=== PATIENT | male | born 2000 | race Asian ===

== ENCOUNTER 2025-03-30 13:54 | Emergency (ER) | payer BC ==
[~2025-03-30] VITALS: Ht 180.3 cm; Wt 82.1 kg
[2025-03-30 13:58] VITALS: TEMP 97.7
[2025-03-30 14:28] LABS: MEAN PLATELET VOLUME 9.0 FL (7.4-10.4); RED CELL DISTRIBUTION WIDTH 13.3 % (11.5-14.5)
[2025-03-30 14:57] LABS: CREATININE 0.91 MG/DL (0.60-1.10); TOTAL CARBON DIOXIDE 29.8 MMOL/L (24-32); eCRCL 133 ML/MIN; eGFR > 90 ML/MIN
[2025-03-30 16:42] LABS: LEUKOCYTE ESTERASE ,URINE NEGATIVE (Neg); NITRITES, URINE NEGATIVE (Neg); OCCULT BLOOD,URINE NEGATIVE (Neg)
[2025-03-30 16:47] LABS: UA COLLECTION TYPE CLN CATCH MIDSTREAM
--- NOTE | 2025-03-30 16:52 | Physician Documentation ---
History of Present Illness ~ Chief Complaint: Flank Pain Stated Complaint: KIDNEY PAIN Time Seen by MD: 16:14 Source: patient HPI Patient is seen today with complaints of right-sided flank pain. Patient does admit to history of kidney stones and states this pain does seem and feel similar but states it is much less intense. Patient states this is definitely not a musculoskeletal or muscle strain. Patient denies any fever or chills or abdominal pain or chest pain or shortness of breath or nausea, vomiting, diarrhea. Patient has no other concern or complaint at this time. Patient states his pain has actually been going on for close to a month. Medication Reconciliation Allergies: Coded Allergies: No Known Allergies (Unverified , 03/30/25) Review of Systems Constitutional: Denies: chills, fever, weakness Eyes: Denies: pain, blurred vision ENT: Denies: ear pain, nose pain, throat pain, mouth pain Respiratory: Denies: cough, shortness of breath Cardiovascular: Denies: chest pain, palpitations Gastrointestinal: Denies: abdominal pain, nausea, vomiting Genitourinary: Denies: burning, dysuria Male Genitalia: Denies: penile discharge, testicular pain Neurological: Denies: headache, dizziness Musculoskeletal: Denies: pain, swelling Integumentary: Denies: rash, lesions Allergic/Immunologic: Denies: hives, itching Hematologic/Lymphatic: Denies: no symptoms reported Psychiatric: Denies: depression, anxiety Physical Exam Vital Signs: Temperature: 97.7, Source: Temporal, Heart Rate: 91, Respiratory Rate: 18, BP: 118/81, Pulse Oximetry: 99, Weight: 82.100 Oxygen Flow Rate: 0 Physical Exam General: Awake and Alert, no acute distress. HEENT: Conjunctiva pink, Sclera clear, Mucus Membranes moist. Neck: Supple without masses and tenderness. Resp: Unlabored. Lungs clear to auscultation bilaterally. Heart: Regular Rate and rhythm, normal S1 and S2 without murmur, rub or gallop. Abdomen: Soft and non tender no organomegaly. Patient has no CVA tenderness. Extremities: No cyanosis,clubbing or edema. Skin: Warm and Dry. Progress Results/Orders Results/Orders Orders - GINO YOUNG PAC Ct Abdomen Pelvis (03/30/25 16:30) Completed Orders - GINO YOUNG PAC Ct Abdomen Pelvis (03/30/25 16:30) Vital Signs 03/30/25 03/30/25 13:58 16:00 Temp 97.7 Pulse 91 85 Resp 18 16 B/P (MAP) 118/81 107/71 (83) Pulse Ox 99 100 O2 Flow Rate 0 0 Laboratory Tests Test 03/30/25 14:18 03/30/25 16:14 White Blood Count 7.3 Red Blood Count 5.09 Hemoglobin 13.5 L Hematocrit 40.7 L Mean Corpuscular Volume 80.0 Mean Corpuscular Hemoglobin 26.5 L Mean Corpuscular Hemoglobin Concent 33.1 Red Cell Distribution Width 13.3 Platelet Count 290 Mean Platelet Volume 9.0 Neutrophils (%) (Auto) 53.2 Lymphocytes (%) (Auto) 31.4 Monocytes (%) (Auto) 7.9 Eosinophils (%) (Auto) 6.7 H Basophils (%) (Auto) 0.8 Neutrophils # (Auto) 3.9 Lymphocytes # (Auto) 2.3 Monocytes # (Auto) 0.6 Eosinophils # (Auto) 0.5 Basophils # (Auto) 0.1 CBC Comment Sodium Level 140 Potassium Level 4.1 Chloride Level 102 Carbon Dioxide Level 29.8 Anion Gap 8 Blood Urea Nitrogen 11 Creatinine 0.91 Estimated GFR/1.73 m2 > 90 BUN/Creatinine Ratio 12.1 Glucose Level 109 H Calcium Level 9.0 Total Bilirubin 0.4 Aspartate Amino Transf (AST/SGOT) 20 Alanine Aminotransferase (ALT/SGPT) 56 Alkaline Phosphatase 93 Total Protein 8.2 Albumin 4.3 Globulin 3.9 Albumin/Globulin Ratio 1.1 Lipase 22 Chemistry Comments Urine Specimen Description Cln catch midstream Urine Color Straw Urine Clarity Clear Urine pH 6.5 Urine Specific [place] <=1.005 Urine Protein Negative Urine Glucose (UA) Negative Urine Ketones Negative Urine Occult Blood Negative Urine Nitrite Negative Urine Bilirubin Negative Urine Urobilinogen 0.2 Urine Leukocyte Esterase Negative Urine Culture Indicated Not ind Volume Urine Centrifuged 10 ml Urine Comment EKG/XRAY/CT/US/VASC/MRI CT : Impression CAT SCAN Patient: TOÑO SANTIAGO Medical Record: [id number] [facility] : 2000, Age: 24 Sex: Male Location: ER Patient Status: [facility] ER Service Date/Time: 03/30/25/ 1630 Ordering Physician: GINO YOUNG PAC Exam: CT ABDOMEN PELVIS EXAM: CT CT ABDOMEN PELVIS History: right flank pain kidney stone rule out. Comparison Study: None TECHNIQUE: Multidetector CT of the abdomen and pelvis without IV contrast. Axial, coronal and sagittal multiplanar reformats were obtained from the axial data set by the technologist. Radiation Dose Information: CT Dose: CTDI volume is 15.04 mGy. Dose-length product is 792.49 mGy*cm FINDINGS: The lung bases are clear. Partially visualized heart is unremarkable. Hepatomegaly with hepatic steatosis. Spleen, gallbladder, pancreas and adrenal glands are unremarkable. Punctate nonobstructing right renal calculi. Mild bilateral renal pelviectasis. Otherwise, kidneys, ureters and urinary bladder unremarkable. Prostate is unremarkable. Stomach is [id number] distended. Small bowel loops are unremarkable. Appendix is unremarkable. Small to moderate amount of fecal material within the colon. No evidence of intraperitoneal free air or free fluid. No evidence of aortic aneurysm . No significant lymphadenopathy. Soft tissues are unremarkable. No evidence of acute osseous abnormalities. IMPRESSION: No evidence of Acute abdominopelvic abnormalities. Punctate nonobstructing right renal calculi. Mild bilateral renal pelviectasis. Hepatomegaly with Hepatic steatosis. Electronically Signed by:BREANNE BRADSHAW DO Date & Time: 03/30/251734 Dictated by: BREANNE BRADSHAW DO Dictation date and time: 03/30/251734 Primary Care Provider: NO PRIMARY CARE PROVIDER cc: GINO YOUNG PAC ~ Medical Decision Making Additional information obtaine: N/A Findings Patient is seen today with complaints of right-sided flank pain. Patient does admit to history of kidney stones and states this pain does seem and feel similar but states it is much less intense. Patient states this is definitely n ot a musculoskeletal or muscle strain. Patient denies any fever or chills or abdominal pain or chest pain or shortness of breath or nausea, vomiting, diarrhea. Patient has no other concern or complaint at this time. Patient Did have CT scan of abdomen and pelvis that did show punctate kidney stones in the right kidney smaller than one or 2 mm. Patient will continue to monitor symptoms closely. Patient will take Tylenol and ibuprofen as needed for symptomatic relief patient will follow up with primary care for referral to urologist as needed. Urinary Diff Dx:Considerations: Include: Urolithiasis, Urinary retention, UTI Genital Diff Dx:Considerations: Unlikely: Abscess, Balanitis, Balanoposthitis, Cellulitis, Epididymitis, Entrapment injury, Shahnaz's gangrene, Foreign body, Facture penis, Hydrocele, Inguinal hernia, Post-op Complication, Paraphimosis, Prostatitis, Priapism, Syphilis, Testicular torsion, Torsion-epididymis, Torsion-appendiceal, Urinary retention, Urethritis, Urethritis-chlamydial, Urethritis-gonococcal, UTI, Other Departure Disposition: HOME / SELF CARE / HOMELESS Impression: Primary Impression: Calculus of kidney Condition: Stable Discharge Instructions: Kidney Stones Additional Instructions: Patient Did have CT scan of abdomen and pelvis that did show punctate kidney stones in the right kidney smaller than one or 2 mm. Patient will continue to monitor symptoms closely. Patient will take Tylenol and ibuprofen as needed for symptomatic relief patient will follow up with primary care for referral to urologist as needed. Referrals: NO PRIMARY CARE PROVIDER (PCP) Signature Scribe Signature: No scribe Attestation: No scribe GINO YOUNG PAC Mar 30, 2025 16:52
--- NOTE | 2025-03-30 17:37 | RADIOLOGY REPORT ---
EXAM: CT CT ABDOMEN PELVIS History: right flank pain kidney stone rule out. Comparison Study: None TECHNIQUE: Multidetector CT of the abdomen and pelvis without IV contrast. Axial, coronal and sagittal multiplanar reformats were obtained from the axial data set by the technologist. Radiation Dose Information: CT Dose: CTDI volume is 15.04 mGy. Dose-length product is 792.49 mGy*cm FINDINGS: The lung bases are clear. Partially visualized heart is unremarkable. Hepatomegaly with hepatic steatosis. Spleen, gallbladder, pancreas and adrenal glands are unremarkable. Punctate nonobstructing right renal calculi. Mild bilateral renal pelviectasis. Otherwise, kidneys, ureters and urinary bladder unremarkable. Prostate is unremarkable. Stomach is [id number] distended. Small bowel loops are unremarkable. Appendix is unremarkable. Small to moderate amount of fecal material within the colon. No evidence of intraperitoneal free air or free fluid. No evidence of aortic aneurysm . No significant lymphadenopathy. Soft tissues are unremarkable. No evidence of acute osseous abnormalities. IMPRESSION: No evidence of Acute abdominopelvic abnormalities. Punctate nonobstructing right renal calculi. Mild bilateral renal pelviectasis. Hepatomegaly with Hepatic steatosis.
[2025-03-30 18:12] VITALS: BP 121/79; PULSE 100; RESP 18; O2SAT 95
== END 2025-03-30 18:13 | disposition home or self-care (01) ==
LOC: ER 13:56
DX: N20.0 Calculus of kidney (principal); Z87.442 Personal history of urinary calculi
CPT/HCPCS: 36415; 74176; 80053; 81003; 83690; 85025; 99284